=== PATIENT | female | born 2000 | race Caucasian/White ===

== ENCOUNTER 2025-10-30 15:32 | Day surgery (SDC) | payer MEDICAID, OTHER, SELFPAY ==
[2025-10-30 15:57] VITALS: BMI 42.4
== END 2025-10-30 19:30 | disposition home or self-care (01) ==
LOC: CSHLD/OP 15:32
PROVIDERS: ATTEND Family Medicine
DX: O36.8330 Maternal care for abnormalities of the fetal heart rate or rhythm, third trimester, not applicable or unspecified (principal); Z3A.34 34 weeks gestation of pregnancy; Z90.49 Acquired absence of other specified parts of digestive tract
CPT/HCPCS: 76815; 76819